=== PATIENT | female | born 1980 | race Caucasian/White ===

== ENCOUNTER 2017-11-15 12:20 | Emergency (ER) | payer OTHER ==
[~2017-11-15] VITALS: Ht 170.2 cm; Wt 136.1 kg
[~2017-11-15 12:20] MED LIST: NOHOMEMEDICATIONS; NORCO 5-325 TA1 EACH PO; VALIUM5 MG PO
[2017-11-15] MEDS ORDERED: PROTONIX40 M1 PO (12:26)
[2017-11-15] MEDS ORDERED: HYDROCODONE-AP1 EAC6 PO (12:38)
[2017-11-15] MEDS ORDERED: PENICILLIN VK500 M1 PO (12:38)
== END 2017-11-15 12:50 | disposition home or self-care (01) ==
LOC: ER 12:20
DX: K08.89 Other specified disorders of teeth and supporting structures (principal); F17.210 Nicotine dependence, cigarettes, uncomplicated; Z90.710 Acquired absence of both cervix and uterus; Z90.49 Acquired absence of other specified parts of digestive tract; Z88.1 Allergy status to other antibiotic agents; Z88.6 Allergy status to analgesic agent; Z88.8 Allergy status to other drugs, medicaments and biological substances

== ENCOUNTER 2018-01-12 09:00 | Emergency (ER) | payer OTHER ==
[~2018-01-12] VITALS: Ht 170.2 cm; Wt 136.1 kg
[2018-01-12 09:00] VITALS: BP 152/98
[~2018-01-12 09:00] MED LIST changes: +HYDROCODONE-AP1 EAC6 PO; +PENICILLIN VK500 M1 PO; +PROTONIX40 M1 PO
[2018-01-12] MEDS ORDERED: FLEXERIL PO (10:16)
[2018-01-12] MEDS ORDERED: IBUPROFEN 800800 M1 PO (10:16)
== END 2018-01-12 10:34 | disposition home or self-care (01) ==
LOC: ER 09:00
DX: S93.492A Sprain of other ligament of left ankle, initial encounter (principal); S39.012A Strain of muscle, fascia and tendon of lower back, initial encounter; F17.210 Nicotine dependence, cigarettes, uncomplicated; Z88.6 Allergy status to analgesic agent; Z88.2 Allergy status to sulfonamides; W10.8XXA Fall (on) (from) other stairs and steps, initial encounter; Y93.89 Activity, other specified; Y92.89 Other specified places as the place of occurrence of the external cause; Y99.8 Other external cause status